=== PATIENT | male | born 1960 | race Two or more races ===

== ENCOUNTER 2023-08-24 17:52 | Emergency (ER) | payer OTHER ==
[~2023-08-24] VITALS: Ht 175.3 cm; Wt 74.8 kg
== END 2023-08-24 19:37 ==
LOC: ER 17:53
DX: S80.872A Other superficial bite, left lower leg, initial encounter (principal); W54.0XXA Bitten by dog, initial encounter; Y93.89 Activity, other specified; Y92.89 Other specified places as the place of occurrence of the external cause